=== PATIENT | male | born 1965 | race African-American/Black ===

== ENCOUNTER 2023-06-06 05:56 | Inpatient (IN) | payer OTHER, SELFPAY ==
[2023-06-06] VITALS (7 sets, daily range): BP systolic 136–200; BP diastolic 71–107; PULSE 89–124; RESP 14–20; TEMP 36.8–37; O2SAT 92–97; BMI 43.9
--- NOTE | 2023-06-06 | ECG_ITS ---
Test Reason : NAUSEA/VOMITING Blood Pressure : / mmHG Vent. Rate : 110 BPM Atrial Rate : 110 BPM P-R Int : 156 ms QRS Dur : 074 ms QT Int : 336 ms P-R-T Axes : 045 051 -10 degrees QTc Int : 454 ms Sinus tachycardia Septal infarct , age undetermined Abnormal ECG No previous ECGs available Referred By: Generic ED Physician Electronically Signed By:Santosh Ibarra
--- NOTE | 2023-06-06 06:21 | PC.NURSE ---
pt biba from home a&ox4, respirations even and unlabored. pt reports episodes of nausea and vomiting since yesterday morning. pt reports attempting to stop alcohol consumption rapidly and reports withdrawal symptoms since. pt reports hx. of withdrawal but denies seizures. pt reports alcohol consumption of more than 4 hard liquor beverages. pt sinus tachy on tele 105-111bpm.
--- NOTE | 2023-06-06 06:26 | ED.NAVMDI ---
HPI - Nausea/Vomiting/Diarrhea General Chief complaint: Nausea/Vomiting/Diarrhea Stated complaint: VOMITTING AND NAUSEA Time Seen by Provider: 06/06/23 06:24 Source: patient, EMS, RN notes reviewed and old records reviewed Mode of arrival: EMS Limitations: no limitations History of Present Illness HPI Narrative: 58 yo male with history of ETOH abuse and dependence presents to the ER from home via EMS for evaluation of N/V and diffuse abdominal pain that started last night. He states he vomited several times overnight, nonbilious and nonbloody. He has diffuse abdominal soreness and soreness throughout his chest. He states he usually drinks 2 pints of liquor daily, last drink was yesterday morning. He has history of withdrawal in the past and wants to stop drinking. No fever, chills, diarrhea, SOB. No known sick contacts. MD elicited complaint: nausea, vomiting and abdominal pain Pertinent past history: alcohol abuse Description of vomiting: food contents Associated nausea: Yes Associated abdominal pain: Yes Radiation: diffuse Pain consistency: intermittent Severity: moderate Quality: aching Exacerbating factors: vomiting Relieving factors: none Context: alcohol abuse Associated symptoms: loss of appetite, malaise, nausea/vomiting and anxiety Related Data Allergies Allergy/AdvReac Type Severity Reaction Status Date / Time lisinopril Allergy Nausea and Verified 06/06/23 06:10 Vomiting Review of Systems Review of Systems: Yes all other systems are reviewed and are negative Gastrointestinal: Gastrointestinal: Reports nausea PMFSH Social History Social History Alcohol intake: current Alcohol intake frequency: 0-2 drinks per day Alcohol type: hard liquor Smoked in Last 30 Days: No Use of substances other than those prescribed or required for medical reasons: No Advance Directives: No Advance Directives Information Provided: No Physical Exam Vital Signs: Vital Signs: Last Vital Signs Temp 98.3 F 06/06/23 07:14 Pulse 102 H 06/06/23 07:14 Resp 17 06/06/23 07:14 BP 146/71 H 06/06/23 07:14 Pulse Ox 92 06/06/23 07:14 O2 Del Method Room Air 06/06/23 07:14 BMI result Body Mass Index 43.9 Appearance: Alert. Oriented X3. Diaphoretic, vomiting, tremulous Head: normocephalic, atraumatic. Eyes: Pupils equal, round and reactive to light. ENT: Pharynx normal. No tonsillar swelling or exudate. Neck: Normal inspection. Neck supple. CVS: Normal heart rate and rhythm. Pulses normal. Respiratory: No respiratory distress. Breath sounds normal. Abdomen: Softly distended with mild diffuse tenderness, no point tenderness, no rebound guarding. hyperactive +BS x4 Skin: Skin warm and dry. Normal skin color. Normal skin turgor. No rashes. Extremities: No lower extremity edema. No joint swelling. Neuro/psych: Oriented X 3. No motor deficit. No sensory deficit. CN II-XII intact. Normal speech and cognition. Course Reevaluation(s) Reevaluation #1: CIWA 12. tachycardic, diaphoretic and vomiting. appears unwell. IM phenobarb ordered along w/ IVF and antiemetics. lab workup pending, will reassess Time: 07:43 Reevaluation #2: No longer vomiting. Given Tylenol for headache. Patient remains tremulous, feels ?the same.? Next dose of phenobarb due now. Will plan to admit for further management. Time: 09:20 Medications Administered Discontinued Medications Generic Name Dose Route Start Last Admin Trade Name Freq PRN Reason Stop Dose Admin Acetaminophen 650 mg 06/06/23 07:59 06/06/23 08:14 Acetaminophen 325 Mg Tablet PO 06/06/23 08:00 650 mg ONCE ONE Administration Sodium Chloride 1,000 mls @ 999 mls/hr 06/06/23 06:30 06/06/23 06:40 Ns IVCONT 06/06/23 07:30 999 mls/hr .Q1H1M SEAN Administration Ondansetron HCl 4 mg 06/06/23 06:27 06/06/23 06:38 Ondansetron Hcl 4 Mg/2 Ml Vial IVPUSH 06/06/23 06:28 4 mg ONCE ONE Administration Phenobarbital Sodium 160 mg 06/06/23 07:00 06/06/23 07:18 Phenobarbital Sodium 130 Mg/Ml Im Once IM 06/06/23 07:01 160 mg ONCE ONE Administration Protocol Medical Decision Making Medical Decision Making MDM Narrative: 58-year-old male with history of alcohol abuse, dependence, withdrawal in the past presents to the ER for evaluation of nausea, vomiting, abdominal soreness for the last 12 hours. Last alcoholic beverage was yesterday morning. Patient drinks 2 pt per day. Patient arrives to the ER diaphoretic, tachycardic, dry heaving. CIWA is 12. Labs performed, no major metabolic derangement. Alcohol level is 109. IM phenobarbital protocol has been initiated. Plan for inpatient admission for management of acute alcohol withdrawal. Differential Diagnosis Differential Diagnoses: The differential diagnosis associated with the presentation includes Acute alcohol withdrawal, DTs, alcohol withdrawal seizure, viral gastroenteritis, pancreatitis Admission/Observation Consideration of admission/observation: Escalation of care including admission/observation considered active etoh withdrawal requiring admission Consult Healthcare Provider Management of the patient was discussed with: Volunteer Assistant Lab Data [facility] Lab Attestation statement: I reviewed the patient's lab results. Mild anemia 06/06/23 06:29 06/06/23 07:17 Labs: Lab Results 06/06/23 06/06/23 06/06/23 Range/Units 06:29 06:40 07:17 WBC 6.6 (4.8-10.8) X10*3/uL RBC 5.11 (4.60-5.80) X10*6/uL Hgb 13.0 L (14.0-18.0) g/dl Hct 39.8 L (42.0-52.0) % MCV 77.9 L (80.0-98.0) fL MCH 25.4 L (27.0-33.0) pg MCHC 32.7 (31.0-36.0) g/dl RDW 23.5 H (11.0-16.0) % Plt Count 361 (160-400) X10*3/uL MPV 9.5 (9.4-12.4) fL Immature Gran % (Auto) 0.5 H (0.0-0.4) % Neut % (Auto) 57.4 (45-73) % Lymph % (Auto) 33.1 (20-40) % [place] % (Auto) 6.6 (2-11) % Eos % (Auto) 1.2 (0-4) % Baso % (Auto) 1.2 (0-2) % Lymph # (Auto) 2.2 (1.2-4.9) X10*3/uL [place] # (Auto) 0.4 (0.1-1.2) X10*3/uL Eos # (Auto) 0.1 (0.0-0.4) X10*3/uL Baso # (Auto) 0.1 (0.0-0.2) X10*3/uL Abs Immat Gran (auto) 0.03 (0.00-0.03) X10*3/uL Absolute Neuts (auto) 3.8 (2.0-8.3) x10*3/uL Absolute Nucleated RBC 0.000 (0.0-0.012) X10*3/uL Nucleated RBC % (auto) 0.0 (0.0-0.2) /100WBC VBG pH 7.55 H (7.32-7.43) VBG pCO2 30 mmHg VBG pO2 140 mmHg VBG HCO3 27 H (22-26) mmol/L VBG O2 Saturation 99.0 % VBG Base Excess 5.3 mmol/L Sodium 137 (135-145) mmol/L Potassium 3.5 (3.3-5.1) mmol/L Chloride 98 (96-108) mmol/L Carbon Dioxide 26 (22-29) mmol/L Anion Gap 17 (12-20) BUN 7 L (9-16) mg/dL Creatinine 0.81 (0.5-1.4) mg/dL Estim Creat Clear Calc 130.3 Estimated GFR > 60 Random Glucose 108 (60-115) mg/dL Calcium 8.7 (8.4-10.2) mg/dL Total Bilirubin 0.3 (0.0-1.0) mg/dL AST 77 H (5-37) U/L ALT 29 (0-40) U/L Alkaline Phosphatase 103 (39-117) U/L Total Protein 7.8 (6.5-8.0) g/dL Albumin 3.7 (3.5-5.0) g/dL Lipase 10 (8-78) U/L Urine Color Urine Appearance Urine pH (5.0-9.0) Ur Specific [place] (1.005-1.025) Urine Protein (Neg-Trace) mg/dL Urine Glucose (UA) (Negative) mg/dL Urine Ketones (Negative) mg/dL Urine Blood (Negative) Urine Nitrite (Negative) Ur Leukocyte Esterase (Negative) Urine RBC (0-2) /HPF Urine WBC (0-5) /HPF Ur Squamous Epith Cells (0-2) /HPF Urine Bacteria (None Seen) Hyaline Casts (0-2) /LPF Urine Opiates Screen (Not Detect) Urine Fentanyl Screen (Not Detect) Ur Barbiturates Screen (Not Detect) Ur Phencyclidine Scrn (Not Detect) Ur Amphetamines Screen (Not Detect) U Benzodiazepines Scrn (Not Detect) Urine Cocaine Screen (Not Detect) U Marijuana (THC) Screen (Not Detect) Ethyl Alcohol 109 mg/dL 06/06/23 Range/Units 08:18 WBC (4.8-10.8) X10*3/uL RBC (4.60-5.80) X10*6/uL Hgb (14.0-18.0) g/dl Hct (42.0-52.0) % MCV (80.0-98.0) fL MCH (27.0-33.0) pg MCHC (31.0-36.0) g/dl RDW (11.0-16.0) % Plt Count (160-400) X10*3/uL MPV (9.4-12.4) fL Immature Gran % (Auto) (0.0-0.4) % Neut % (Auto) (45-73) % Lymph % (Auto) (20-40) % [place] % (Auto) (2-11) % Eos % (Auto) (0-4) % Baso % (Auto) (0-2) % Lymph # (Auto) (1.2-4.9) X10*3/uL [place] # (Auto) (0.1-1.2) X10*3/uL Eos # (Auto) (0.0-0.4) X10*3/uL Baso # (Auto) (0.0-0.2) X10*3/uL Abs Immat Gran (auto) (0.00-0.03) X10*3/uL Absolute Neuts (auto) (2.0-8.3) x10*3/uL Absolute Nucleated RBC (0.0-0.012) X10*3/uL Nucleated RBC % (auto) (0.0-0.2) /100WBC VBG pH (7.32-7.43) VBG pCO2 mmHg VBG pO2 mmHg VBG HCO3 (22-26) mmol/L VBG O2 Saturation % VBG Base Excess mmol/L Sodium (135-145) mmol/L Potassium (3.3-5.1) mmol/L Chloride (96-108) mmol/L Carbon Dioxide (22-29) mmol/L Anion Gap (12-20) BUN (9-16) mg/dL Creatinine (0.5-1.4) mg/dL Estim Creat Clear Calc Estimated GFR Random Glucose (60-115) mg/dL Calcium (8.4-10.2) mg/dL Total Bilirubin (0.0-1.0) mg/dL AST (5-37) U/L ALT (0-40) U/L Alkaline Phosphatase (39-117) U/L Total Protein (6.5-8.0) g/dL Albumin (3.5-5.0) g/dL Lipase (8-78) U/L Urine Color Yellow Urine Appearance Clear Urine pH 7.5 (5.0-9.0) Ur Specific [place] 1.015 (1.005-1.025) Urine Protein 100 (2+) H (Neg-Trace) mg/dL Urine Glucose (UA) Negative (Negative) mg/dL Urine Ketones Negative (Negative) mg/dL Urine Blood Negative (Negative) Urine Nitrite Negative (Negative) Ur Leukocyte Esterase Negative (Negative) Urine RBC 0-2 (0-2) /HPF Urine WBC 0-5 (0-5) /HPF Ur Squamous Epith Cells 0-2 (0-2) /HPF Urine Bacteria None Seen (None Seen) Hyaline Casts 0-2 (0-2) /LPF Urine Opiates Screen Not Detected (Not Detect) Urine Fentanyl Screen Not Detected (Not Detect) Ur Barbiturates Screen POSITIVE H (Not Detect) Ur Phencyclidine Scrn Not Detected (Not Detect) Ur Amphetamines Screen Not Detected (Not Detect) U Benzodiazepines Scrn Not Detected (Not Detect) Urine Cocaine Screen Not Detected (Not Detect) U Marijuana (THC) Screen Not Detected (Not Detect) Ethyl Alcohol mg/dL Independent Interpretation I performed an independent interpretation of an: EKG Interpretation: Sinus tachycardia, ventricular rate 110 beats per minute, QTC 454, normal NE interval no ST segment elevations or depressions Independent Historian Clinical information obtained from an independent historian. History obtained from or confirmed by: EMS Prescription Management I considered prescription management with: Other (Benzodiazepine) Chronic Conditions Patient?s care impacted by: Hypertension Social Determinants Patient?s care significantly limited by Social Determinants of Health including: Alcoholism and drug addiction in family and Problems related to primary support group Critical Care Time Critical Care Time Critical Care Time: Yes Total Critical Care Time: 44 Attestation: I have personally provided critical care time exclusive of time spent on separately billable procedures. Time includes review of lab data, radiology results, discussion with consultants, and monitoring for potential decompensation. Intervention performed as documented. Discharge Plan Discharge Clinical Impression: Alcohol withdrawal, Intractable vomiting Patient Disposition: Admitted As Inpatient
[2023-06-06] MEDS: ondansetron HCL 4 MG/2 ML VIAL IVPUSH ×3 (06:38→16:58)
[2023-06-06] MEDS: 0.9 % Sodium Chloride 1,000 ML 999 ML IVCONT (06:40)
[2023-06-06 06:43] LABS: MANUAL DIFF FLAG NO
[2023-06-06 06:44] LABS: Venous Blood Gas Refer to POC result
--- NOTE | 2023-06-06 06:45 | PC.NURSE ---
20G ultrasound guided IV placed at this time in the Right AC, labs obtained and sent to lab. pt CIWA=12. Liliana PELAYO aware.
[2023-06-06 06:47] LABS: Basophils Absolute Auto 0.1 X10*3/uL (0.0-0.2); Basophils Percent Auto 1.2 % (0-2); Eosinophils Absolute Auto 0.1 X10*3/uL (0.0-0.4); Eosinophils Percent Auto 1.2 % (0-4); Hematocrit 39.8 % (42.0-52.0); Imm Gran Abs Auto 0.03 X10*3/uL (0.00-0.03); Imm Gran Pct Auto 0.5 % (0.0-0.4); Lymphocytes Absolute Auto 2.2 X10*3/uL (1.2-4.9); Lymphocytes Percent Auto 33.1 % (20-40); Mean Corpuscular HGB Conc 32.7 g/dl (31.0-36.0); Mean Corpuscular Hemoglobin 25.4 pg (27.0-33.0); Mean Corpuscular Volume 77.9 fL (80.0-98.0); Mean Platelet Volume 9.5 fL (9.4-12.4); Monocytes Absolute Auto 0.4 X10*3/uL (0.1-1.2); Monocytes Percent Auto 6.6 % (2-11); Neutrophils Absolute Auto 3.8 x10*3/uL (2.0-8.3); Neutrophils Percent Auto 57.4 % (45-73); Platelet Count 361 X10*3/uL (160-400); Red Blood Count 5.11 X10*6/uL (4.60-5.80); Red Cell Distribution Width 23.5 % (11.0-16.0); White Blood Count 6.6 X10*3/uL (4.8-10.8)
[2023-06-06 06:56] LABS: VBG Base Excess 5.3 mmol/L; VBG HCO3 27 mmol/L (22-26); VBG pCO2 30 mmHg; VBG pH 7.55 (7.32-7.43); VBG pO2 140 mmHg
[2023-06-06] MEDS: PHENobarbitaL sodium 130 MG/ML IM ONCE 160 MG IM (07:18)
--- NOTE | 2023-06-06 07:38 | PC.NURSE ---
patient resting in bed, has IV fluids running. patient medicated per MAY with pheno protocol, patient states he has gone thru alcohol wd before, has never had seizure. patient appears to be uncomfortable, has tremors, nausea. patient VSS respirations equal and unlabored
[2023-06-06] MEDS: Acetaminophen 325 MG TABLET 650 MG PO (08:14)
[2023-06-06 08:15] LABS: Alanine Aminotransferase 29 U/L (0-40); Albumin Level 3.7 g/dL (3.5-5.0); Alkaline Phosphatase 103 U/L (39-117); Anion Gap 17 (12-20); Aspartate Amino Transferase 77 U/L (5-37); Bilirubin Total 0.3 mg/dL (0.0-1.0); Blood Urea Nitrogen 7 mg/dL (9-16); Calcium 8.7 mg/dL (8.4-10.2); Carbon Dioxide 26 mmol/L (22-29); Chloride 98 mmol/L (96-108); Creatinine Clr Calc Pharmacy 130.3; Estimated Glomerular Filt Rate > 60; Ethanol 109 mg/dL; Glucose Random 108 mg/dL (60-115); Lipase 10 U/L (8-78); Potassium 3.5 mmol/L (3.3-5.1); Sodium 137 mmol/L (135-145); Total Protein 7.8 g/dL (6.5-8.0)
[2023-06-06 08:30] LABS: Appearance Urine Clear; Color Urine Yellow; Glucose Urine UA Negative (Negative); Leukocyte Esterase Urine Negative (Negative); Nitrite Urine Negative (Negative); PH 7.5 (5.0-9.0); Specific Gravity - Urine 1.015 (1.005-1.025); UMIC TRIGGER UACC YES; Urine Blood Negative (Negative); Urine Ketones Negative (Negative); Urine Protein 100 (2+) mg/dL (Neg-Trace)
[2023-06-06 08:37] LABS: Bacteria Urine None Seen (None Seen); Hyaline Casts Urine 0-2 /LPF (0-2); RBC Urine 0-2 /HPF (0-2); Squamous Epithelial Cell Urine 0-2 /HPF (0-2); WBC Urine 0-5 /HPF (0-5)
[2023-06-06 08:42] LABS: Amphetamine Screen Urine Not Detected (Not Detect); Barbiturates, Urine POSITIVE (Not Detect); Benzodiazepines Screen Urine Not Detected (Not Detect); Cannabinoid Screen Urine Not Detected (Not Detect); Cocaine Screen Urine Not Detected (Not Detect); Fentanyl, urine Not Detected (Not Detect); Opiate Screen Urine Not Detected (Not Detect); Phencyclidine Screen Urine Not Detected (Not Detect)
[2023-06-06] MEDS: PHENobarbitaL sodium 130 MG/ML VIAL IM Q3Hx2 120 MG IM ×2 (10:18→13:59)
--- NOTE | 2023-06-06 10:38 | PM.IMHP ---
History of Present Illness Date of Service: 06/06/23 Chief Complaint: Nausea, vomitting 58 year old male with obese with history of HTN, diabetes non insulin dependent, alcoholism--he drinks 2 pints of dark liquor daily, last drank yesterday. He presents with acute onset onset of nausea, vomitting, and generalized abdominal pain in in the upper abdomen since last night. He is visibly tremulous and has been initiated on treatement for alcohol withdrawal with phenobarbitala, IVF and antiemetics. Review of Systems Review of Systems: Gen: no fever Resp: no sob, no cough CV: no chest, no AKBAR, no leg edema GI: +n/v, + abd pain Neuro: No confusion PMFSH Social History Alcohol intake: current Alcohol intake frequency: 0-2 drinks per day Alcohol type: hard liquor Smoked in Last 30 Days: No Use of substances other than those prescribed or required for medical reasons: No Advance Directives: No Advance Directives Information Provided: No Meds Allergies Allergy/AdvReac Type Severity Reaction Status Date / Time lisinopril Allergy Nausea and Verified 06/06/23 06:10 Vomiting Active Medications: Current Medications Pharmacy Consult (Consult Rx Etoh Phenob Im/Po) 1 each MISCELLANE ONCE PRN; Protocol PRN Reason: Consult order Phenobarbital (Phenobarbital 15 Mg Tablet) 45 mg PO BID SEAN; Protocol Stop: 06/08/23 09:01 Phenobarbital (Phenobarbital 30 Mg Tablet) 30 mg PO BID SEAN; Protocol Stop: 06/10/23 09:01 Phenobarbital (Phenobarbital 30 Mg Tablet) 30 mg PO Q24H SEAN; Protocol Stop: 06/11/23 21:01 Phenobarbital Sodium (Phenobarbital Sodium 130 Mg/Ml Vial Im Q3hx2) 120 mg IM Q3H SEAN; Protocol Stop: 06/06/23 13:01 Last Admin: 06/06/23 10:18 Dose: 120 mg Physical Exam Vital Signs and Narrative: Vital Signs: Last Vital Signs Temp 98.4 F 06/06/23 10:22 Pulse 94 06/06/23 10:22 Resp 16 06/06/23 10:22 BP 144/82 H 06/06/23 10:22 Pulse Ox 95 06/06/23 10:22 O2 Del Method Room Air 06/06/23 10:22 BMI result Body Mass Index 43.9 Constitutional: Alert, in no distress, overweight. Mental Status: Oriented to person, place and time. Eyes: Pupils are equal, round and reactive to light. Ear, Nose and Throat: Oropharynx clear, mucous membranes moist. Ears and nose without deformities. Trachea midline. Respiratory: Clear to auscultation. No wheezing, rales or rhonchi. Cardiovascular: S1 S2 regular. No murmurs, rubs or gallops. Gastrointestinal: Abdomen soft, non-tender, non-distended. Normal bowel sounds.? No guarding Neurologic: Cranial nerves II-XII grossly intact. No focal neurological deficits. Moves all extremities spontaneously.? Skin: No rashes or lesions.? Musculoskeletal: No cyanosis or clubbing. Psychiatric: Normal mood and affect? Results Labs 06/06/23 06:29 06/06/23 07:17 Labs: Laboratory Results - last 24 hr 06/06/23 06/06/23 06/06/23 06:29 06:40 07:17 MCV 77.9 L MCH 25.4 L MCHC 32.7 RDW 23.5 H Plt Count 361 MPV 9.5 Immature Gran % (Auto) 0.5 H Neut % (Auto) 57.4 Lymph % (Auto) 33.1 [place] % (Auto) 6.6 Eos % (Auto) 1.2 Baso % (Auto) 1.2 Lymph # (Auto) 2.2 [place] # (Auto) 0.4 Eos # (Auto) 0.1 Baso # (Auto) 0.1 Abs Immat Gran (auto) 0.03 Absolute Neuts (auto) 3.8 Absolute Nucleated RBC 0.000 Nucleated RBC % (auto) 0.0 VBG pH 7.55 H VBG pCO2 30 VBG pO2 140 VBG HCO3 27 H VBG O2 Saturation 99.0 VBG Base Excess 5.3 Anion Gap 17 Estim Creat Clear Calc 130.3 Estimated GFR > 60 Random Glucose 108 Calcium 8.7 Total Bilirubin 0.3 AST 77 H ALT 29 Alkaline Phosphatase 103 Total Protein 7.8 Albumin 3.7 Lipase 10 Urine Color Urine Appearance Urine pH Ur Specific [place] Urine Protein Urine Glucose (UA) Urine Ketones Urine Blood Urine Nitrite Ur Leukocyte Esterase Urine RBC Urine WBC Ur Squamous Epith Cells Urine Bacteria Hyaline Casts Urine Opiates Screen Urine Fentanyl Screen Ur Barbiturates Screen Ur Phencyclidine Scrn Ur Amphetamines Screen U Benzodiazepines Scrn Urine Cocaine Screen U Marijuana (THC) Screen Ethyl Alcohol 109 06/06/23 08:18 MCV MCH MCHC RDW Plt Count MPV Immature Gran % (Auto) Neut % (Auto) Lymph % (Auto) [place] % (Auto) Eos % (Auto) Baso % (Auto) Lymph # (Auto) [place] # (Auto) Eos # (Auto) Baso # (Auto) Abs Immat Gran (auto) Absolute Neuts (auto) Absolute Nucleated RBC Nucleated RBC % (auto) VBG pH VBG pCO2 VBG pO2 VBG HCO3 VBG O2 Saturation VBG Base Excess Anion Gap Estim Creat Clear Calc Estimated GFR Random Glucose Calcium Total Bilirubin AST ALT Alkaline Phosphatase Total Protein Albumin Lipase Urine Color Yellow Urine Appearance Clear Urine pH 7.5 Ur Specific [place] 1.015 Urine Protein 100 (2+) H Urine Glucose (UA) Negative Urine Ketones Negative Urine Blood Negative Urine Nitrite Negative Ur Leukocyte Esterase Negative Urine RBC 0-2 Urine WBC 0-5 Ur Squamous Epith Cells 0-2 Urine Bacteria None Seen Hyaline Casts 0-2 Urine Opiates Screen Not Detected Urine Fentanyl Screen Not Detected Ur Barbiturates Screen POSITIVE H Ur Phencyclidine Scrn Not Detected Ur Amphetamines Screen Not Detected U Benzodiazepines Scrn Not Detected Urine Cocaine Screen Not Detected U Marijuana (THC) Screen Not Detected Ethyl Alcohol Assessment and Plan (1) Alcohol withdrawal: Status: Acute (2) Intractable vomiting: Status: Acute Plan 58 year old male with diabetes, HTN, alcoholism here with N/V, abdominal pain and alcohol withdrawal Alcohol withdrawal--started on Phenobarbtital, cessation discussed, IV thiamine and Folate. Addiction med consult Abdominal pain, N/V --likely due to alcoholic gastritis, symptomatic treatment with antiemetics, IV Pepcid, if pain persists, get CT and or GI consult. Clear diet and advanced as marielena. Morphine for pain HTN--resume meds (Norvasc, Chlorthalidone and Losartan) once med completed HLD--Lipitor Diabetes--hold Metformin until eating full meals, add SSI, DVT prophylaxis--lovneoxc Full code admission for at least 2 midnights for management of alcohol withdrwal needing phenobarbital to prevent full blown DTs Quality Stroke Does the patient have a stroke diagnosis?: No VTE Prior VTE?: No VTE Risk Level:: Medical - moderate - high VTE Device Contraindication: Treatment Not Indicated VTE Drug Contraindication: N/A - Med Ordered
[2023-06-06] MEDS: Folic Acid 1 MG in 0.9 % Sodium Chloride 50 ML 100.4 MG IV (11:44)
[2023-06-06] MEDS: Famotidine/PF 20 MG/2 ML VIAL IVPUSH ×2 (11:44→20:13)
[2023-06-06] MEDS: Enoxaparin Sodium 40 MG/0.4 ML SYRINGE SUBCUT (11:48)
[2023-06-06] MEDS: Lactated Ringers 1,000 ML 150 ML IVCONT ×2 (12:38→19:05)
[2023-06-06] MEDS: Thiamine HCL 100 MG in 0.9 % Sodium Chloride 100 ML 202 MG IV ×2 (12:39→20:13)
[2023-06-06 13:43] LABS: Glucose, Whole Blood 101 mg/dL (60-115)
--- NOTE | 2023-06-06 14:13 | PHA.MEDREC ---
Pharmacy Consult ? Medication Reconciliation Pharmacy has completed the medication reconciliation. Spoke to patient and confirmed medication list. Patient takes vitamin b1 100 mg qd and ferrous sulfate 325 mg qd.
[2023-06-06] MEDS: Atorvastatin Calcium 10 MG TABLET PO (15:44)
[2023-06-06] MEDS: Multivitamin TABLET 1 TAB PO (15:44)
[2023-06-06] MEDS: Cyanocobalamin (Vitamin B-12) 1,000 MCG TABLET 1000 MCG PO (15:44)
[2023-06-06] MEDS: Metoprolol Succinate ER 50 MG TAB.ER.24H PO (15:44)
[2023-06-06] MEDS: allopurinoL 100 MG TABLET PO (15:44)
[2023-06-06] MEDS: amLODIPine Besylate 10 MG TABLET PO (15:44)
--- NOTE | 2023-06-06 16:51 | ECG_ITS ---
Test Reason : CHEST PAIN Blood Pressure : / mmHG Vent. Rate : 090 BPM Atrial Rate : 090 BPM P-R Int : 160 ms QRS Dur : 078 ms QT Int : 390 ms P-R-T Axes : 056 053 -03 degrees QTc Int : 477 ms Sinus rhythm with marked sinus arrhythmia Septal infarct (cited on or before 06-JUN-2023) Abnormal ECG When compared with ECG of 06-JUN-2023 06:10, No significant change was found Referred By: Eduardo Gutierrez Electronically Signed By:Santosh Ibarra
[2023-06-06] MEDS: Morphine Sulfate 2 MG/ML CARTRIDGE IVPUSH (16:58)
--- NOTE | 2023-06-06 17:23 | PC.NURSE ---
patient stated he started to have chest pain that spread across his chest, that felt like cramping with pain 10/10. patient attending provider notified, ordered ekg and troponin level. both completed and sent
[2023-06-06 17:49] LABS: Troponin-I High Sensitivity 5.4 ng/L (<3.5-35.0)
[2023-06-06] MEDS: Pyridoxine HCl (Vitamin B6) 50 MG TABLET PO (17:57)
[2023-06-06 18:25] LABS: Glucose, Whole Blood 98 mg/dL (60-115)
--- NOTE | 2023-06-06 18:28 | MHC.EDTECH ---
Patient given dinner tray
--- NOTE | 2023-06-06 19:23 | PC.NURSE ---
assumed care of pt 1915. pt axox4. tremulous. pt reports nausea/ 8/[address] scores [address] Camargo aware. to order additional dose of phenobarb. new bag of ivf hung and infusing. nad. call patel within reach.
[2023-06-06] MEDS: PHENobarbitaL 15 MG TABLET 45 MG PO (20:13)
[2023-06-06] MEDS: PHENobarbitaL sodium 130 MG/ML VIAL IM (20:13)
[2023-06-06] MEDS: Mirtazapine 30 MG TABLET PO (20:14)
[2023-06-06 20:16] LABS: Glucose, Whole Blood 107 mg/dL (60-115)
--- NOTE | 2023-06-06 21:30 | MHC.CM.ED ---
CM attempted to meet with admitted patient with bed assignment pending. Pt has [facility]. Pt sleeping. Recently medicated. Will assess when patient wakes.HCP on file. HCP/sister Shanda Nunez ([phone]).
[2023-06-07] VITALS (7 sets, daily range): BP systolic 129–153; BP diastolic 70–82; PULSE 89–100; RESP 12–20; TEMP 36.2–36.9; O2SAT 92–98; BMI 43.8
[2023-06-07] MEDS: Lactated Ringers 1,000 ML 150 ML IVCONT ×2 (03:30→13:28)
[2023-06-07] MEDS: Omeprazole 20 MG CAPSULE.DR PO (06:07)
[2023-06-07 06:10] LABS: MANUAL DIFF FLAG NO
[2023-06-07 06:35] LABS: Anion Gap 12 (12-20); Blood Urea Nitrogen 7 mg/dL (9-16); Calcium 9.1 mg/dL (8.4-10.2); Carbon Dioxide 31 mmol/L (22-29); Chloride 97 mmol/L (96-108); Creatinine Clr Calc Pharmacy 111.1; Estimated Glomerular Filt Rate > 60; Glucose Random 97 mg/dL (60-115); Potassium 3.3 mmol/L (3.3-5.1); Sodium 137 mmol/L (135-145)
[2023-06-07 06:54] LABS: Basophils Absolute Auto 0.1 X10*3/uL (0.0-0.2); Basophils Percent Auto 1.3 % (0-2); Eosinophils Absolute Auto 0.2 X10*3/uL (0.0-0.4); Eosinophils Percent Auto 2.4 % (0-4); Hematocrit 37.6 % (42.0-52.0); Imm Gran Abs Auto 0.03 X10*3/uL (0.00-0.03); Imm Gran Pct Auto 0.5 % (0.0-0.4); Lymphocytes Percent Auto 30.8 % (20-40); Mean Corpuscular HGB Conc 31.9 g/dl (31.0-36.0); Mean Corpuscular Hemoglobin 25.8 pg (27.0-33.0); Mean Corpuscular Volume 80.7 fL (80.0-98.0); Mean Platelet Volume 10.5 fL (9.4-12.4); Monocytes Absolute Auto 0.6 X10*3/uL (0.1-1.2); Monocytes Percent Auto 9.9 % (2-11); Neutrophils Absolute Auto 3.5 x10*3/uL (2.0-8.3); Neutrophils Percent Auto 55.1 % (45-73); Platelet Count 318 X10*3/uL (160-400); Red Blood Count 4.66 X10*6/uL (4.60-5.80); Red Cell Distribution Width 24.1 % (11.0-16.0); White Blood Count 6.4 X10*3/uL (4.8-10.8)
[2023-06-07 07:26] LABS: Glucose, Whole Blood 103 mg/dL (60-115)
[2023-06-07] MEDS: Ferrous Sulfate 324 MG TABLET.DR PO (07:49)
[2023-06-07] MEDS: Losartan Potassium 50 MG TABLET PO (07:49)
[2023-06-07] MEDS: Metoprolol Succinate ER 50 MG TAB.ER.24H PO (07:49)
[2023-06-07] MEDS: Atorvastatin Calcium 10 MG TABLET PO (07:49)
[2023-06-07] MEDS: Multivitamin TABLET 1 TAB PO (07:49)
[2023-06-07] MEDS: amLODIPine Besylate 10 MG TABLET PO (07:49)
[2023-06-07] MEDS: allopurinoL 100 MG TABLET PO (07:49)
[2023-06-07] MEDS: Cyanocobalamin (Vitamin B-12) 1,000 MCG TABLET 1000 MCG PO (07:49)
[2023-06-07] MEDS: PHENobarbitaL 15 MG TABLET 45 MG PO ×2 (07:50→20:51)
[2023-06-07] MEDS: Famotidine/PF 20 MG/2 ML VIAL IVPUSH ×2 (07:51→20:50)
[2023-06-07 08:23] LABS: Glucose, Whole Blood 95 mg/dL (60-115)
[2023-06-07] MEDS: hydroCHLOROthiazide 50 MG TABLET PO (09:30)
[2023-06-07] MEDS: Pyridoxine HCl (Vitamin B6) 50 MG TABLET PO (09:30)
[2023-06-07] MEDS: metFORMIN HCl 850 MG TABLET PO ×2 (09:30→20:51)
[2023-06-07] MEDS: Folic Acid 1 MG in 0.9 % Sodium Chloride 50 ML 100.4 MG IV (09:57)
--- NOTE | 2023-06-07 10:18 | MHC.CM.PN ---
Addendum entered by Magali Baptiste 06/07/23 10:38: Pt's PCP is [facility], pt was last seen there May 07, and next appt. September 04. Original Note: Pt is independent, no home health services or medical equipment. He will complete HCP form here, naming his sister, Shanda Nunez. He will arrange transportation home, lives nearby. His PCP is new to him, at the [facility] to determine which provider. will follow and assist as needed with DC plan.
[2023-06-07] MEDS: Thiamine HCL 100 MG in 0.9 % Sodium Chloride 100 ML 202 MG IV ×2 (10:29→20:50)
[2023-06-07 11:22] LABS: Glucose, Whole Blood 110 mg/dL (60-115)
--- NOTE | 2023-06-07 11:54 | MHC.RECOVRN ---
Met with pt in 471 after consult placed to Addiction Medicine for alcohol use. Pt had presented to the ED reporting n/v and attempting to abstain from alcohol x 1 day. Upon evaluation, pt admitted for treatment of alcohol withdrawal and intractable vomiting. Pt laying in bed, awake, alert, easily engages in conversation, appears comfortable. Pt reports feeling better. Pt reports alcohol use, 1+ pint dark liquor x 6 months. Prior to 6 months ago, pt had been in recovery x 1.5 years. Pt reports he has utilized programs, including [employer] and (currently) [employer], work, and [employer], to obtain and maintain recovery. Pt reports 18 years in recovery from tobacco and cocaine. Pt states When my daughter was born I just stopped cold turkey. That's how I'm feeling now about the alcohol, I'm just tired. Pt reports hx Campral through PCP, reports it was not effective. Discussed other BRENDA as well as additional recovery support and options, pt declines referrals at this time. Pt reports he is moving to [place] in July to live with his daughter and grandchildren. Pt reports having many friends in recovery in [place]. Pt provided with written resources as well as t/w contact information if needed. Pt denies questions or concerns for t/w. Discussed with Gladys Fisher APRN.
[2023-06-07] MEDS: Enoxaparin Sodium 40 MG/0.4 ML SYRINGE SUBCUT (13:29)
[2023-06-07 16:21] LABS: Glucose, Whole Blood 110 mg/dL (60-115)
[2023-06-07 20:10] LABS: Glucose, Whole Blood 118 mg/dL (60-115)
[2023-06-07] MEDS: Mirtazapine 30 MG TABLET PO (20:51)
[2023-06-07] MEDS: Acetaminophen 325 MG TABLET 650 MG PO (20:56)
[2023-06-08] MEDS: 0.9 % Sodium Chloride Flush 3 ML SYRINGE IVFLUSH ×2 (00:23→09:20)
[2023-06-08 03:27] VITALS: BP 143/78; PULSE 94; RESP 20; TEMP 36.6; O2SAT 97
[2023-06-08] MEDS: Omeprazole 20 MG CAPSULE.DR PO (06:11)
[2023-06-08 06:59] VITALS: BP 140/79; PULSE 94; RESP 18; TEMP 36.8; O2SAT 96
[2023-06-08 07:00] LABS: Glucose, Whole Blood 103 mg/dL (60-115)
[2023-06-08] MEDS: metFORMIN HCl 850 MG TABLET PO (09:12)
[2023-06-08] MEDS: Metoprolol Succinate ER 50 MG TAB.ER.24H PO (09:12)
[2023-06-08] MEDS: Atorvastatin Calcium 10 MG TABLET PO (09:13)
[2023-06-08] MEDS: hydroCHLOROthiazide 50 MG TABLET PO (09:14)
[2023-06-08] MEDS: amLODIPine Besylate 10 MG TABLET PO (09:14)
[2023-06-08] MEDS: Pyridoxine HCl (Vitamin B6) 50 MG TABLET PO (09:14)
[2023-06-08] MEDS: Multivitamin TABLET 1 TAB PO (09:15)
[2023-06-08] MEDS: Ferrous Sulfate 324 MG TABLET.DR PO (09:15)
[2023-06-08] MEDS: allopurinoL 100 MG TABLET PO (09:16)
[2023-06-08] MEDS: Losartan Potassium 50 MG TABLET PO (09:16)
[2023-06-08] MEDS: Cyanocobalamin (Vitamin B-12) 1,000 MCG TABLET 1000 MCG PO (09:16)
[2023-06-08] MEDS: PHENobarbitaL 15 MG TABLET 45 MG PO (09:17)
[2023-06-08] MEDS: Famotidine/PF 20 MG/2 ML VIAL IVPUSH (09:19)
[2023-06-08] MEDS: Folic Acid 1 MG in 0.9 % Sodium Chloride 50 ML 100.4 MG IV (09:19)
[2023-06-08] MEDS: Thiamine HCL 100 MG in 0.9 % Sodium Chloride 100 ML 202 MG IV (10:13)
[2023-06-08 10:54] VITALS: BP 143/76; PULSE 96; RESP 18; TEMP 36.5; O2SAT 96
[2023-06-08 10:56] LABS: Glucose, Whole Blood 98 mg/dL (60-115)
--- NOTE | 2023-06-08 13:40 | P.DS_ITS ---
DS: Providers Provider Date of Service: 06/08/23 Date of admission: 06/06/23 11:10 Primary care physician: HUGO Harris Consults: 06/06/23 11:12 Addiction Medicine Routine Consulting Provider: Carole Covering Reason for consultation: Alcoholism Has provider been notified: No DS: Diagnosis Discharge Diagnosis (1) Alcohol withdrawal: Status: Resolved (2) Intractable vomiting: Status: Resolved DS: Summary Hospital Course Hospital Course: Chief Complaint: Nausea, vomitting 58 year old male with obese with history of HTN, diabetes non insulin dependent, alcoholism--he drinks 2 pints of dark liquor daily, last drank yesterday. He presents with acute onset onset of nausea, vomitting, and generalized abdominal pain in in the upper abdomen since last night. He is visibly tremulous and has been initiated on treatement for alcohol withdrawal with phenobarbitala, IVF and antiemetics. H hospital course: This patient who drink rather heavily presented to the hospital with nausea vomiting and abdominal pain following heavy alcohol use. He was visibly shaky at the time of presentation and his presentation was consistent with alcohol withdrawal state. As such the patient was initiated on phenobarbital, IV hydration for what appeared to be acute alcoholic gastritis. He was also started on IV Pepcid. Over the course of hospitalization he conditions improved his abdominal pain nausea vomiting completely resolved. As for alcohol withdrawal he was treated with phenobarbital, thiamine and folate he is tremulous has resolved he is calm and collected. He has been assessed by a recovery team and given resources on helping him quitting alcohol. He has plans to move to [place] while away if his daughter and grandchildren and that he believes that he would do better there, and will seek resources to help him quit once he gets there. done it before and can do it again in the meantime he has been advised to stay away from alcohol all cut down significantly. To resume all other medications. Time Attestation Discharge Coordination Time (in mins): 45 Quality: Safe Use of Opioids Does Pt have an Active Cancer Diagnosis on the Problem List?: No Quality: Stroke Does the patient have a stroke diagnosis?: No Physical Exam Vital Signs: Vital Signs: Last Vital Signs Temp 97.7 F 06/08/23 10:54 Pulse 96 06/08/23 10:54 Resp 18 06/08/23 10:54 BP 143/76 H 06/08/23 10:54 Pulse Ox 96 06/08/23 10:54 O2 Del Method Room Air 06/08/23 10:54 BMI result Body Mass Index 43.8 General: AO X 3, no acute distress Resp: CTA bilateral CVS: S1,S2,RRR GI: +BS, NT, no distention Skin: No rash Neuro: motor grossly intact Psych: appropriate affect DS: Data Data Completed and Pending Labs on day of discharge: Laboratory Results - last 24 hr 06/07/23 06/07/23 06/08/23 16:09 19:39 06:54 POC Glucose 110 118 H 103 06/08/23 10:52 POC Glucose 98 Discharge Plan Discharge Anticipated Discharge Date/Time: 06/08/23 13:36 Patient Disposition: Home, Self-Care Discharge Diagnosis: Alcoholic gastritis, alcohol withdrawal Referrals: Heidi Huff FNP [Primary Care Provider] - 1 Week Discharge Medications: Continued losartan 50 mg tablet 50 mg PO DAILY atorvastatin 10 mg tablet 10 mg PO DAILY metoprolol succinate 50 mg tablet extended release 24 hr 50 mg PO DAILY metformin 850 mg tablet 850 mg PO BID cyanocobalamin (vitamin B-12) 1,000 mcg tablet 1,000 mcg PO DAILY thiamine HCl (vitamin B1) 100 mg tablet 100 mg PO DAILY chlorthalidone 50 mg tablet 50 mg PO DAILY allopurinol 100 mg tablet 100 mg PO DAILY amlodipine 10 mg tablet 10 mg PO DAILY pantoprazole 40 mg tablet,delayed release (DR/EC) 40 mg PO DAILY mirtazapine 30 mg tablet 30 mg PO BEDTIME pyridoxine (vitamin B6) 50 mg tablet 50 mg PO DAILY albuterol sulfate [Ventolin HFA] 90 mcg/actuation HFA aerosol inhaler 2 puff inhalation Q4H PRN (Reason: wheezing) ferrous sulfate 325 mg (65 mg iron) tablet,delayed release (DR/EC) 325 mg PO DAILY multivitamin with folic acid [Daily-Tasneem (with folic acid)] 400 mcg tablet 1 tab PO DAILY Discharge Orders: Discharge Order (Routine); Ordered 06/08/23 Ordered By: Eduardo Gutierrez Diet: Diabetic diet Activity on Discharge: As tolerated Stand Alone Forms: Patient Portal Discharge page Print Language: Vincentian Care Plan Goals: Complete abstinence from alcohol use Resolution of alcoholic gastritis Health Concerns: Alcohol dependency Plan of Treatment: Avoid alcohol, and followed through the recommendation and resources given to you by the recovery team Follow-up with your primary care doctor within a week, call for appointment. Assessment: See above Discharge Date/Time: 06/08/23 15:00
--- NOTE | 2023-06-08 14:00 | MHC.CM.PN ---
Pt is medically cleared for D/C home self-care, pt has arranged for his own transportation home.
== END 2023-06-08 15:00 | disposition home or self-care (01) | DRG 241 ==
LOC: HO.ED 07:43 → HO.EDOVER 11:26 → HO.IMC 06-07 07:18
PROVIDERS: Physician Assistant; Admitting Provider Internal Medicine; Emergency Provider Emergency Medicine; PCP Registered Nurse; Visit Provider Internal Medicine
DX: K29.20 Alcoholic gastritis without bleeding (principal); E11.9 Type 2 diabetes mellitus without complications; F10.239 Alcohol dependence with withdrawal, unspecified; Y90.5 Blood alcohol level of 100-119 mg/100 ml; E66.9 Obesity, unspecified; E78.5 Hyperlipidemia, unspecified; Z68.41 Body mass index [BMI] 40.0-44.9, adult; I10 Essential (primary) hypertension; Z79.84 Long term (current) use of oral hypoglycemic drugs; Z79.899 Other long term (current) drug therapy
CPT/HCPCS: 36415; 80048; 80053; 80307; 81001; 82803; 82947; 83690; 84484; 85025; 93005; 99285; J1650; J2270; J2405; J2560; J3411; J7120

== ENCOUNTER → 2023-06-06 06:10 | Outpatient (BNV) | payer OTHER, SELFPAY | PROVIDERS: Admitting Provider Internal Medicine; Emergency Provider Emergency Medicine; Visit Provider Internal Medicine Cardiovascular Disease | DX: R07.9 Chest pain, unspecified (principal) | CPT/HCPCS: 93010 ==

== ENCOUNTER → 2023-06-06 11:10 | Outpatient (BNV) | payer OTHER, SELFPAY | PROVIDERS: Admitting Provider Internal Medicine; Emergency Provider Emergency Medicine; Visit Provider Internal Medicine | DX: F10.939 Alcohol use, unspecified with withdrawal, unspecified (principal); R11.10 Vomiting, unspecified | CPT/HCPCS: 99223; 99239 ==